=== PATIENT | male | born 1990 | race Caucasian/White ===

== ENCOUNTER 2021-06-20 08:20 | Outpatient (REF) | payer MEDICAID, SELFPAY ==
[2021-06-20 20:57] LABS: Anion Gap 9.9 mmol/L (3-11); BUN 14 mg/dL (7-18); CO2 26.1 mmol/L (21.0-32.0); CREATININE 0.8 mg/dL (0.70-1.30); Calcium 9.3 mg/dL (8.5-10.1); Calculated LDL 121 mg/dL (<100); Chloride 108 mmol/L (98-107); Cholesterol 177 mg/dL (<200); Glucose 94 mg/dL (74-106); HDL Cholesterol 47 mg/dL (40-60); Potassium 4.3 mmol/L (3.5-5.1); Sodium 144 mmol/L (136-145); Triglyceride 48 mg/dL (<150)
== END 2021-06-20 08:21 | disposition home or self-care (01) ==
LOC: NCHCN 08:20
PROVIDERS: Visit Provider Nurse Practitioner Family
DX: Z00.00 Encounter for general adult medical examination without abnormal findings (principal); Z13.220 Encounter for screening for lipoid disorders; Z71.89 Other specified counseling
CPT/HCPCS: 80048; 80061

== ENCOUNTER 2025-04-02 15:55 | Outpatient (REF) | payer MEDICAID, SELFPAY ==
[2025-04-02 21:31] LABS: Abs Immature Grans 0.01 10^3/uL (0.0-0.06); Absolute Basophil Count 0.02 10^3/uL (0.0-0.2); Absolute Eosinophil Count 0.04 10^3/uL (0.0-0.7); Absolute Lymphocyte Count 1.62 10^3/uL (1.2-3.4); Absolute Monocyte Count 0.52 10^3/uL (0.1-0.8); Basophils % 0.3 %; Eosinophils % 0.6 %; HCT 44.9 % (40.0-50.0); HGB 14.1 g/dL (13.5-17.5); Immature Grans % 0.2 %; Lymphocytes % 24.5 %; MCH 25.9 pg (27.0-33.0); MCHC 31.4 % (32.0-36.0); MCV 83 fL (80-95); MPV 12.1 fL (8.0-11.0); Monocytes % 7.9 %; Neutrophils % 66.5 %; Platelet Count 168 10^3/uL (130-400); RBC 5.44 10^6/uL (4.36-5.78); RDW 13.1 % (11.8-14.1); RDW-SD 39.1 fL; WBC 6.61 10^3/uL (4.4-10.8)
[2025-04-02 21:52] LABS: ALT 23 U/L (16-63); AST 22 U/L (15-37); Albumin 4.5 g/dL (3.4-5.0); Alkaline Phosphatase 80 U/L (46-116); Anion Gap 6.7 mmol/L (3-11); BUN 15 mg/dL (7-18); Bilirubin, Total 0.6 mg/dL (0.2-1.0); CO2 30.3 mmol/L (21.0-32.0); CREATININE 0.8 mg/dL (0.70-1.30); Calcium 9.5 mg/dL (8.5-10.1); Calculated LDL 89 mg/dL (<100); Chloride 106 mmol/L (98-107); Cholesterol 163 mg/dL (<200); Estimated GFR 118.36 (mL/min/1.73m2); Glucose 72 mg/dL (74-106); HDL Cholesterol 61 mg/dL (>or=40); Potassium 3.9 mmol/L (3.5-5.1); Sodium 143 mmol/L (136-145); TSH (W/Ref FT4) 0.77 uIU/mL (0.36-3.74); Total Protein 7.5 g/dL (6.4-8.2); Triglyceride 67 mg/dL (<150)
[2025-04-02 22:40] LABS: Hemoglobin A1C 5.1 % (<5.7)
== END 2025-04-02 15:56 | disposition home or self-care (01) ==
LOC: NCHCN 15:55
PROVIDERS: Visit Provider Nurse Practitioner Family
DX: Z13.1 Encounter for screening for diabetes mellitus (principal); Z13.29 Encounter for screening for other suspected endocrine disorder; Z13.220 Encounter for screening for lipoid disorders; R63.4 Abnormal weight loss
CPT/HCPCS: 80053; 80061; 83036; 84443; 85025